=== PATIENT | female | born 1955 | race Caucasian/White ===

== ENCOUNTER → 2017-09-14 | Outpatient (CLI) | payer BC ==
[2015-04-09 08:20] VITALS: BP 119/72
[~2017-09-14] MED LIST: BUPR100T8 PO; CALC600T4 PO; CETI-161 PO; CROM10DR2 EACHEYE; ERGO400T PO; ESTR2TAB PO; FLUT9.9S NS; GLUCOSAMINE 1,1 EACH PO; GREE1CAP PO; MULT-208 PO; OMEG1CAP6 PO; TRIA1TAB2 PO; VITA150T PO
--- NOTE | 2017-09-14 15:34 | RAD ---
Left lower extremity venous duplex ultrasound. 09/14/2017 3:31 PM Indication: LEFT LEG PAIN AND SWELLING Comparison study: None Discussion: Sonographic evaluation of the deep veins of the left lower extremity was performed. This includes grayscale imaging and color duplex imaging with spectral analysis. No evidence of deep venous thrombosis is seen. Interrogated veins are compressible and demonstrate augmentable blood flow and color Doppler imaging. Impression: No evidence of deep venous thrombosis involving the left lower extremity
== END | disposition home or self-care (01) ==
LOC: US 13:57
PROVIDERS: ATTEND Physician Assistant Medical
DX: M79.605 Pain in left leg (principal); M79.89 Other specified soft tissue disorders
CPT/HCPCS: 93971

== ENCOUNTER → 2017-09-14 | Outpatient (CLI) | payer BC ==
[2015-04-09 08:20] VITALS: BP 119/72
--- NOTE | 2017-09-14 09:50 | RAD ---
Indication: No known injury, pain. Technique: 3 views of the left knee are submitted for review. No comparison is available. Findings: There is no fracture or dislocation. There is no joint effusion or soft tissue swelling. There is mild narrowing of the medial compartment. There is spurring in the medial compartment. Potential osteochondral defect in the medial femoral condyle also is noted. Impression: 1. Negative for fracture. 2. Degenerative changes which are greatest in the medial compartment. If further workup is required, consider MRI.
== END | disposition home or self-care (01) ==
LOC: RAD 07:58
PROVIDERS: ATTEND Physician Assistant Medical
DX: M17.12 Unilateral primary osteoarthritis, left knee (principal)
CPT/HCPCS: 73562

== ENCOUNTER → 2019-11-30 | Outpatient (CLI) | payer MEDICARE ==
[2015-04-09 08:20] VITALS: BP 119/72
--- NOTE | 2019-11-30 15:49 | RAD ---
Examination: Limited left breast ultrasound. INDICATION: Screening recall for new nodule in the anteromedial left breast on mammography. COMPARISON: Left mammograms of 11/04/2019, 04/22/2018 and 04/21/2017. FINDINGS: Targeted ultrasound of the anterior inferior left breast identifies a 6 mm oval parallel orientation superficial echogenic mass at the 8:00 position 9 cm from the nipple that likely correlates with the mammographic finding recalled from screening. The margins are slightly indistinct. IMPRESSION: Probably benign small focus of fat necrosis. Recommend six-month follow-up left breast ultrasound and left diagnostic mammogram (including a tangential view) with a marker on the sonographic finding to confirm mammographic and sonographic concordance. BI-RADS Category 3 Probably benign findings Patient entered into a reminder system with target due date for next mammogram. BI-RADS 3 -- probably benign, 6-month follow-up
== END | disposition home or self-care (01) ==
LOC: US 13:47
PROVIDERS: ATTEND Physician Assistant Medical
DX: N63.24 Unspecified lump in the left breast, lower inner quadrant (principal)
CPT/HCPCS: 76641

== ENCOUNTER → 2020-11-22 | Outpatient (CLI) | payer MEDICARE ==
[2015-04-09 08:20] VITALS: BP 119/72
[~2020-11-22] MED LIST changes: -CALC600T4 PO; +CALC600T6 PO
--- NOTE | 2020-11-22 17:57 | RAD ---
Examination: 1. Bilateral digital diagnostic mammogram. 2. Limited left breast ultrasound. INDICATION: 65-year-old woman presenting for short-term follow-up probably benign nodule in the left breast. She is due for screening COMPARISON: Bilateral mammograms of 11/04/2019. TECHNIQUE: CC and MLO views of both breasts were obtained with 2-D and 3-D technique and reviewed wit h computer-aided detection. Targeted ultrasound of the left breast was also performed focused in the lower inner quadrant. FINDINGS: The breast parenchyma is almost entirely fatty replaced. Right mammogram is negative. The left mammogram shows a BB corresponding to the sonographic finding initially identified in the lo wer inner quadrant and reassessed at this visit with targeted left breast ultrasound. The BB corresponds with the superficial fat lobule, confirming the initial suspicion of the sonograph ic finding represented noncalcified fat necrosis. Targeted ultrasound of the left breast shows no change in size of the echogenic parallel orientation circumscribed 6 mm nodule seen previously. Sonographic survey of the left axilla revealed no adenopat hy. No developing mass, suspicious calcification or architectural distortion in either breast. Impression: Benign findings. No evidence of malignancy. BI-RADS Category 2 Benign Recommend return to routine screening next due in one year. Patient entered into a reminder system with targeted due date for next mammogram. Electronically signed by: Kathia Holloway MD (11/22/2020 5:54 PM) [id number]
== END ==
LOC: MAMMO 12:37
PROVIDERS: ATTEND Physician Assistant Medical
DX: N63.20 Unspecified lump in the left breast, unspecified quadrant (principal)
CPT/HCPCS: 76641; 77066

== ENCOUNTER → 2020-12-11 | Outpatient (CLI) | payer MEDICARE ==
[2015-04-09 08:20] VITALS: BP 119/72
--- NOTE | 2020-12-11 10:56 | RAD ---
EXAM: DUAL ENERGY X-RAY ABSORPTIOMETRY (DEXA). HISTORY: Postmenopausal screening. FINDINGS: The lowest measured T-score is -2.1 in the lumbar spine, based on a bone mineral density of 0.908 g/cm^2. Refer to the worksheets for full detail. There has been a 2.0 percent increase in density of the lumbar spine and 4.1 percent decrease in dens ity of the right hip compared to a study performed 01/31/2014. IMPRESSION: 1. Low bone mass. Bone mineral density yields a T-score between -1.0 and -2.5. Fracture risk is incre ased. 2. FRAX report: Not calculated. METHODOLOGY: Dual energy x-ray absorptiometry was performed to measure bone mineral density. The foll owing analysis is based on the 2019 Official Positions of the International Society for Clinical Dens itometry: Measurements of the hips and the average of L1-L4 are preferred. When the spine and/or hip cannot be feasibly measured or interpreted, or in the setting of hyperparathyroidism, distal radial bone minera l density may be measured. The lumbar spine T-score is based on the average bone mineral density of L1-L4. In the setting of art ifact or anatomic abnormality, some lumbar levels may be excluded, and the remaining levels used for calculation. A single lumbar level is not used for diagnosis, and if only a single level is available for assessment, another anatomic site will be used to assign a diagnosis. The hip T-score is based on the bone mineral density measurement of the femoral neck or total proxima l femur of either side, whichever is lowest. Bilateral mean values are not used for diagnosis. The forearm T-score is derived from 33% of the distal radius of the nondominant forearm. Electronically signed by: Yanira Junior MD (12/11/2020 10:54 AM) [id number]
== END ==
LOC: DXRAD 09:37
PROVIDERS: ATTEND Physician Assistant Medical
DX: M85.88 Other specified disorders of bone density and structure, other site (principal); Z78.0 Asymptomatic menopausal state
CPT/HCPCS: 77080

== ENCOUNTER → 2021-11-25 | Outpatient (CLI) | payer MEDICARE ==
[2015-04-09 08:20] VITALS: BP 119/72
[~2021-11-25] MED LIST changes: -CALC600T6 PO; +CALC600T60 PO; -ESTR2TAB PO; +ESTR2TAB3 PO
--- NOTE | 2021-11-25 14:27 | RAD ---
INDICATION : Routine Screening. COMPARISON: [facility] including October 2019 TECHNIQUE: Standard mammogram screening views of the bilateral breasts were obtained with 3D tomosynt hesis. CAD was utilized. FINDINGS: The breasts are fatty density. No definite suspicious mass. IMPRESSION: BI-RADS Category 1: Negative. Recommend repeat screening examination in one year. The patient was placed into the recall system with a suggested recall date for follow up imaging. Mammography is the most sensitive method for finding small breast cancers, but it does not detect the m all and is not a substitute for careful clinical examination. A negative mammogram does not negate a clinically suspicious finding and should not result in delay in biopsying a clinically suspicious abnormality. Electronically signed by: Sergio Gore MD (11/25/2021 2:24 PM) [id number]
== END ==
LOC: MAMMO 11:47
PROVIDERS: ATTEND Physician Assistant Medical
DX: Z12.31 Encounter for screening mammogram for malignant neoplasm of breast (principal)
CPT/HCPCS: 77063; 77067